=== PATIENT | male | born 1940 | race Caucasian/White ===

== ENCOUNTER 2017-04-13 07:30 | Outpatient (CLI) | payer OTHER ==
[~2017-04-13 07:30] MED LIST: AMBIEN10 MG PO; ASPIR 8181 MG PO; Colace 100MG PO; ENALAPRIL MALEA10 MG PO; GLIPIZIDE10 MG PO; GLUMETZA1000 MG PO; NEURONTIN300 MG PO; PERCOCET 5/3251 TAB PO
== END 2017-04-13 07:59 | disposition home or self-care (01) ==
LOC: NUCLEAR 07:30
DX: I20.8 Other forms of angina pectoris (principal); I10 Essential (primary) hypertension
CPT/HCPCS: 78452; 93017; 93306; A9500

== ENCOUNTER 2018-12-04 05:15 | Day surgery (SDC) | payer OTHER ==
[~2018-12-04 05:15] MED LIST changes: +AMAR PO; +LIPO FLAVONOID; +LIPO-FLAVONOID1 EACH; +METFORMIN HCL1000 MG; +NEURONTIN300 MG; +VASOTEC10 MG
== END 2018-12-04 12:45 | disposition home or self-care (01) ==
LOC: CIR.AMB 05:15
DX: N47.1 Phimosis (principal)

== ENCOUNTER 2019-08-28 22:11 | Emergency (ER) | payer OTHER ==
[~2019-08-28] VITALS: Ht 170.2 cm; Wt 79.4 kg
[2019-08-28] MEDS ORDERED: METROPOLOL 25 MG. (22:29)
[2019-08-28] MEDS ORDERED: ASPIRINA (22:30)
[2019-08-29] MEDS ORDERED: MOBIC15 MG PO (04:03)
== END 2019-08-29 06:39 | disposition home or self-care (01) ==
LOC: ER 22:11 → CPU-OBS 22:46 → ER 22:46
DX: M54.2 Cervicalgia (principal); R07.89 Other chest pain; Z03.818 Encounter for observation for suspected exposure to other biological agents ruled out